=== PATIENT | female | born 2000 | race African-American/Black ===

== ENCOUNTER 2020-07-07 16:09 | Emergency (ER) | payer OTHER, SELFPAY ==
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
[2020-07-07 16:09] VITALS: BP 116/66; PULSE 91; RESP 16; TEMP 36.3; O2SAT 99
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
--- NOTE | 2020-07-07 18:00 | PC.NURSE ---
Pt XY and CT at this time via stretcher.
[2020-07-07] MEDS: KETOROLAC (*BKC) 60 MG/2 ML VIAL IM (18:19)
--- NOTE | 2020-07-07 19:05 | PC.NURSE ---
This RN attempted to discharge pt. Pt states pain is still 10/10. EDP made aware, new orders on chart.
[2020-07-07] MEDS: CYCLOBENZAPRINE HCL 10 MG TABLET PO (19:09)
[2020-07-07 19:14] VITALS: BP 106/64; PULSE 79; RESP 15; O2SAT 98
== END 2020-07-07 19:13 | disposition home or self-care (01) ==
PROVIDERS: Emergency Provider Emergency Medicine
DX: S39.012A Strain of muscle, fascia and tendon of lower back, initial encounter (principal); V49.40XA Driver injured in collision with unspecified motor vehicles in traffic accident, initial encounter
CPT/HCPCS: 72125; 72131; 73502; 73552; 81025; 96372; 99284; A9270; J1885

== ENCOUNTER 2021-03-20 18:48 | Emergency (ER) | payer OTHER, SELFPAY ==
[2021-03-20 18:52] VITALS: BP 136/86; PULSE 80; RESP 18; TEMP 35.9; O2SAT 100
--- NOTE | 2021-03-20 19:13 | PC.NURSE ---
Pt exits ED with no sign of any kind of distress. IV removed by ELVIA Menendez.
== END 2021-03-21 02:03 | disposition left against medical advice (07) ==
DX: R51.9 Headache, unspecified (principal)
CPT/HCPCS: 99199